=== PATIENT | male | born 1990 | race Caucasian/White ===

== ENCOUNTER 2020-06-07 10:43 | Emergency (ER) | payer OTHER ==
[~2020-06-07] VITALS: Ht 190.5 cm; Wt 81.7 kg
[2020-06-07 11:02] LABS: URINE BILIRUBIN NEGATIVE (Negative); URINE BLOOD TRACE (Negative); URINE COLOR YELLOW; URINE GLUCOSE-RANDOM* NEGATIVE (Negative); URINE KETONES NEGATIVE (Negative); URINE NITRITE-REFLEX NEGATIVE (Negative); URINE PROTEIN (DIPSTICK) 1+ (Negative); URINE SPECIFIC GRAVITY 1.025 (1.005-1.035); URINE UROBILINOGEN 0.2 E.U./dl (0.2-1.0)
[2020-06-07 11:03] LABS: URINE CLARITY CLOUDY; URINE LEUKOCYTES-REFLEX 2+ (Negative)
[2020-06-07 11:11] LABS: ABSOLUTE NEUTROPHILS 8.7 thou/uL (1.4-8.2); BASOPHILS 0.5 % (0.0-2.0); EOSINOPHILS 1.7 % (0.0-3.0); HEMATOCRIT 43.2 % (42.0-52.0); HEMOGLOBIN 14.4 gm/dL (14.0-18.0); LYMPHOCYTES 22.1 % (24.0-44.0); MCH 28.2 pg (26.0-34.0); MCHC 33.3 g/dL (28.0-37.0); MCV 84.9 fL (80.0-100.0); MONOCYTES 10.1 % (1.0-8.0); PLATELET COUNT 331 thou/uL (150-400); POLYS 65.6 % (36.0-66.0); RBC 5.09 mil/uL (4.50-6.00); RDW 13.1 % (10.5-14.5); WBC 13.3 thou/uL (4.0-11.0)
[2020-06-07 11:18] LABS: CALCIUM 9.4 mg/dL (8.5-10.1); CREATININE 0.9 mg/dL (0.7-1.3); POTASSIUM 3.6 mmol/L (3.5-5.1)
[2020-06-07 11:23] LABS: ALBUMIN 3.6 g/dL (3.4-5.0); TOTAL BILIRUBIN 0.5 mg/dL (0.2-1.0); TOTAL PROTEIN 7.3 g/dL (6.4-8.2)
[2020-06-07 11:35] LABS: BACTERIA-REFLEX 1-9 Few /HPF (None Seen); CASTS None Seen /LPF (None Seen); CRYSTALS None Seen /LPF (None Seen); SQUAMOUS None Seen /LPF (0-3); URINE RBC None Seen /HPF (0-2); URINE WBC-REFLEX >25 Many /HPF (0-5)
[2020-06-07] MEDS ORDERED: NAPROSYN500 MG PO (13:05)
[2020-06-07] MEDS ORDERED: DOXYCYCLINE 10100 MG PO (13:05)
[2020-06-07 13:22] VITALS: BP 114/75
== END 2020-06-07 13:22 | disposition home or self-care (01) ==
LOC: ER 10:43
PROVIDERS: Emergency Medicine; Physician Assistant
DX: N45.1 Epididymitis (principal); R30.0 Dysuria; Z20.2 Contact with and (suspected) exposure to infections with a predominantly sexual mode of transmission; M54.6 Pain in thoracic spine; F17.210 Nicotine dependence, cigarettes, uncomplicated

== ENCOUNTER 2020-08-27 14:00 | Emergency (ER) | payer OTHER ==
[~2020-08-27] VITALS: Ht 190.5 cm; Wt 104.3 kg
[~2020-08-27 14:00] MED LIST: DOXYCYCLINE 10100 MG PO; NAPROSYN500 MG PO
[2020-08-27 17:03] VITALS: BP 123/75
[2020-08-28] MEDS ORDERED: SEROQUEL 50 MG50 MG PO (05:19)
[2020-08-28] MEDS ORDERED: NF (06:33)
[2020-08-28] MEDS ORDERED: DESCOVY 200-251 EACH PO (06:46)
== END 2020-08-27 17:03 | disposition home or self-care (01) ==
LOC: ER 14:00
DX: S01.81XA Laceration without foreign body of other part of head, initial encounter (principal); S16.1XXA Strain of muscle, fascia and tendon at neck level, initial encounter; S60.221A Contusion of right hand, initial encounter; F17.210 Nicotine dependence, cigarettes, uncomplicated; Z79.899 Other long term (current) drug therapy; Y04.2XXA Assault by strike against or bumped into by another person, initial encounter; Y93.89 Activity, other specified; Y92.89 Other specified places as the place of occurrence of the external cause; Y99.8 Other external cause status